=== PATIENT | male | born 1990 | race Caucasian/White ===

== ENCOUNTER 2022-05-09 06:18 | Inpatient (IN) ==
[~2022-05-09 06:18] MED LIST: Buffered Lidocaine 1% SYRIN 1 ml INTRADERM ONE; HYDROmorphone 1 MG/1 ML SYRINGE IV PRN; Lactated Ringers 1000 ml BAG 1,000 ML IV SCH; Naloxone 0.4 mg VIAL 0.4 mg/ml 1 ml VIAL IV PRN; Ondansetron 4 mg VIAL 2 MG/ML 2 ml VIAL IV PRN; Prochlorperazine 5 mg/ml 2 ml VIAL (10 mg) IV PRN
[2022-05-09] MEDS ORDERED: ceFAZolin 2 GM PREMIX 2 GM/50 ML BAG ONE (06:56)
[2022-05-09] MEDS ORDERED: ceFAZolin 1 GM in Dextrose 1 GM/50 ML BAG ONE (06:56)
[2022-05-09] MEDS ORDERED: Scopolamine 1 mg/72hr PATCH ONE (06:56)
[2022-05-09] MEDS ORDERED: Heparin 5000 UNITS/ML 1 mL VIAL ONE (06:56)
[2022-05-09] MEDS ORDERED: Bupivacaine 0.25% w/EPI 10 ML SDV ONE (07:15)
[2022-05-09] MEDS ORDERED: fentaNYL 100 mcg/2 ml 50 MCG/ML VIAL ONE ×2 (07:22→10:56)
[2022-05-09] MEDS ORDERED: Midazolam 2 mg/2 ml VIAL 1 mg/ml 2 ml VIAL (2 mg) ONE (07:22)
[2022-05-09] MEDS ORDERED: Lidocaine 2% PF 5 ML VIAL ONE (08:32)
[2022-05-09] MEDS ORDERED: Dexamethasone IV 4 MG/ML VIAL 1 ml VIAL ONE (08:32)
[2022-05-09] MEDS ORDERED: Propofol 10 MG/ML 20 ML BTL ONE (08:32)
[2022-05-09] MEDS ORDERED: HYDROmorphone 0.5 MG/0.5 ML SYRINGE ONE (08:32)
[2022-05-09] MEDS ORDERED: Acetaminophen IV 1 GM/100ML 1,000 MG/100 ML BAG IV ONE (08:32)
[2022-05-09] MEDS ORDERED: Ondansetron 4 mg VIAL 2 MG/ML 2 ml VIAL ONE (08:32)
[2022-05-09] MEDS ORDERED: Rocuronium 50 mg VIAL 10 mg/ml 5 ml VIAL (50 mg) ONE ×2 (08:33→08:37)
[2022-05-09] MEDS ORDERED: Phenylephrine 40 mcg/mL 10mL (400mcg) SYRINGE ONE (08:45)
[2022-05-09] MEDS ORDERED: Sugammadex 500 MG/5 ML 5 ml VIAL IV PUSH ONE (09:51)
[2022-05-09] MEDS ORDERED: HYDROmorphone 1 MG/1 ML SYRINGE IV SLOW PU PRN (10:34)
[2022-05-09] MEDS ORDERED: Acetaminophen IV 1 GM/100ML 1,000 MG/100 ML BAG IV PRN (10:34)
[2022-05-09] MEDS: fentaNYL 100 mcg/2 ml 50 MCG/ML VIAL IV PRN ×4 (10:59→11:37)
[2022-05-09] MEDS: Lactated Ringers 1000 ml BAG 1,000 ML IV SCH ×2 (12:23→20:24)
[2022-05-09] MEDS: HYDROmorphone 0.5 MG/0.5 ML SYRINGE IV SLOW PU PRN ×2 (12:39→16:21)
[2022-05-09] MEDS: Ondansetron 4 mg VIAL 2 MG/ML 2 ml VIAL IV PRN ×2 (12:39→18:05)
[2022-05-09] MEDS: Heparin 5000 UNITS/ML 1 mL VIAL SUBCUT SCH ×2 (14:59→22:10)
[2022-05-09] MEDS: Famotidine IV 10 MG/ML 2 ml VIAL (20 mg) IV SLOW PU SCH (22:11)
[2022-05-10] MEDS: Lactated Ringers 1000 ml BAG 1,000 ML IV SCH (03:22)
[2022-05-10] MEDS: Heparin 5000 UNITS/ML 1 mL VIAL SUBCUT SCH ×2 (06:27→14:28)
[2022-05-10] MEDS: Famotidine IV 10 MG/ML 2 ml VIAL (20 mg) IV SLOW PU SCH (07:30)
[2022-05-10] MEDS ORDERED: Acetaminophen IV 1 GM/100ML 1,000 MG/100 ML BAG IV PRN (08:54)
[2022-05-10] MEDS ORDERED: HYDROcodone/ACET. 7.5/325 LIQ 15 ML UDC PO PRN (09:16)
[2022-05-10] MEDS ORDERED: D5W 1/2 NS KCl 20 meq 1000 ml 1,000 ML IV SCH (11:00)
[2022-05-10 11:18] VITALS: BP 144/78
== END 2022-05-10 14:45 | disposition home or self-care (01) | DRG 621 ==
LOC: AA 06:18 → SSU 10:34
PROVIDERS: ADMIT Surgery; ATTEND Surgery